=== PATIENT | male | born 1985 | race Caucasian/White ===

== ENCOUNTER 2021-09-17 00:10 | Emergency (ER) | payer SELFPAY ==
[2021-09-17 01:11] LABS: Absolute Lymphocytes (CBC) 1.8 K/uL (0.7-4.9); Hematocrit 49.7 % (39.6-49.0); Lymphocytes % 21.2 % (15.3-44.8); MPV 8.4 fL (7.6-11.3); RBC Red Blood Cell Count 5.47 M/uL (4.33-5.43)
[2021-09-17] MEDS ORDERED: TETANUS & DIPHTHERIA TOX,ADULT 0.5 ML VIAL ONE (01:11)
[2021-09-17] MEDS ORDERED: ONDANSETRON 4 MG/2 ML VIAL ONE (01:11)
[2021-09-17] MEDS ORDERED: MORPHINE 4 MG/ML SYR ONE (01:11)
[2021-09-17 01:22] LABS: Protime INR 1.05
[2021-09-17] MEDS ORDERED: NA CHLORIDE 0.9% 1,000 ML ONE (01:22)
[2021-09-17 01:23] LABS: Potassium 3.5 mmol/L (3.5-5.1)
[2021-09-17] MEDS ORDERED: CEFAZOLIN SODIUM 1 GM/VIAL ONE (03:56)
[2021-09-17] MEDS ORDERED: NA CHLORIDE 0.9% 50 ML ONE (03:58)
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
[2021-09-17 05:43] VITALS: TEMP 98.4
[2021-09-17 05:49] VITALS: BP 118/88; O2SAT 100
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
== END 2021-09-17 05:08 | disposition home or self-care (01) ==
LOC: ER 00:10
DX: S81.831A Puncture wound without foreign body, right lower leg, initial encounter (principal); S60.021A Contusion of right index finger without damage to nail, initial encounter; F17.210 Nicotine dependence, cigarettes, uncomplicated; Z23 Encounter for immunization
CPT/HCPCS: 36415; 73706; 80048; 85025; 85610; 85730; 90471; 90714; 96361; 96365; 96375; 99284; J0690; J2405; J7030; Q9967